=== PATIENT | female | born 1985 | race African-American/Black ===

== ENCOUNTER 2021-07-11 21:58 | Emergency (ER) | payer SELFPAY ==
[~2021-07-11] VITALS: Ht 175.3 cm; Wt 82.0 kg
[2021-07-11] MEDS ORDERED: LORAZEPAM 1MG TABLET PO ONE (22:45)
[2021-07-11] MEDS ORDERED: ACETAMINOPHEN 325MG TABLET PO ONE (22:45)
[2021-07-11 23:17] LABS: CLARITY URINE CLOUDY (CLEAR); COLOR URINE YELLOW (YELLOW); KETONES URINE TRACE (NEGATIVE); LEUKOCYTE ESTERASE URINE 2+ (NEGATIVE); NITRITE URINE POSITIVE (NEGATIVE); OCCULT BLOOD URINE 1+ (NEGATIVE); PH URINE 5.5 (4.5-8.0); PROTEIN URINE NEGATIVE (NEGATIVE); SPECIFIC GRAVITY URINE 1.023 (1.005-1.030); UROBILINOGEN URINE 0.2 E.U./dL (0.2-1.0)
[2021-07-11 23:29] LABS: CHLORIDE 107 mEq/L (98-107)
[2021-07-11 23:29] LABS: *BARBITURATES SCREEN URINE NEGATIVE (NEGATIVE); *COCAINE SCREEN URINE NEGATIVE (NEGATIVE); METHADONE URINE SCREEN NEGATIVE (NEGATIVE); OPIATES URINE SCREEN NEGATIVE (NEGATIVE)
[2021-07-11 23:30] LABS: *BENZODIAZEPINES SCREEN URINE NEGATIVE (NEGATIVE); CANNABINOID URINE SCREEN NEGATIVE (NEGATIVE)
[2021-07-11] MEDS ORDERED: CEFTRIAXONE SODIUM 1 G/VIAL IM NR (23:30)
[2021-07-11 23:32] LABS: BASOPHILS % 0.4 % (0.0-2.0); EOSINOPHILS % 3.8 % (0.0-5.0); HEMATOCRIT. 40.6 % (36.0-48.0); HEMOGLOBIN. 13.2 g/dL (12.0-16.0); LYMPHOCYTES % 38.9 % (20.0-50.0); MEAN CORPUSCULAR HEMOGLOBIN 30.1 pg (28.0-32.0); MEAN CORPUSCULAR VOLUME 92.8 fL (81.0-99.0); MEAN PLATELET VOLUME 8.3 fl (7.4-10.4); MONOCYTES % 7.4 % (2.0-8.0); NEUTROPHILS % 49.5 % (40.0-76.0); PLATELET 257 x1000/uL (130-400); RED BLOOD CELL COUNT 4.37 mill/uL (4.2-5.4); RED CELL DISTRIBUTION WIDTH 14.4 % (11.6-14.6)
[2021-07-11 23:33] LABS: ETHANOL BLOOD < 10 mg/dL
[2021-07-11 23:43] LABS: *AMPHETAMINES SCREEN URINE PRESUMTIVE POSITIVE (NEGATIVE); PHENCYCLIDINE URINE SCREEN PRESUMTIVE POSITIVE (NEGATIVE)
[2021-07-11] MEDS ORDERED: DEXTROSE 50% WATER 50ML SYRINGE IV ONE (23:45)
[2021-07-11 23:52] LABS: HCG SCREEN NEGATIVE
[2021-07-12] MEDS ORDERED: CEPHALEXIN 250MG CAPSULE PO SCH (09:00)
[2021-07-12] MEDS ORDERED: CEPH500C2 MT (11:07)
[2021-07-12 11:44] VITALS: BP 116/69
== END 2021-07-12 12:14 | disposition home or self-care (01) ==
LOC: ER 21:58
DX: R45.851 Suicidal ideations (principal); R44.0 Auditory hallucinations; N39.0 Urinary tract infection, site not specified; F15.10 Other stimulant abuse, uncomplicated; G92.8 Other toxic encephalopathy; E16.2 Hypoglycemia, unspecified; R51.9 Headache, unspecified; T40.991A Poisoning by other psychodysleptics [hallucinogens], accidental (unintentional), initial encounter; F16.10 Hallucinogen abuse, uncomplicated; Y92.89 Other specified places as the place of occurrence of the external cause; Z59.02 Unsheltered homelessness
CPT/HCPCS: 36415; 80053; 80305; 80307; 80320; 80329; 81003; 82962; 84703; 85025; 96372; 96374; 99285; J0696; G0480